=== PATIENT | male | born 1990 | race Caucasian/White ===

== ENCOUNTER 2023-07-14 09:37 | Emergency (ER) | payer SELFPAY ==
--- NOTE | ~2023-07-14 | XR_ITS ---
EXAMINATION: XR shoulder RT min 2V INDICATION: Right shoulder pain TECHNIQUE: Four views of the right shoulder are submitted. COMPARISON: None FINDINGS: Normal alignment. No fracture. The glenohumeral joint is unremarkable. The acromion is loca joanna 6 mm caudal to the distal clavicle. Soft tissues are unremarkable. IMPRESSION: 1. Findings suggestive of mild acromioclavicular joint separation. Reviewed, dictated and finalized at location L. [facility] [employer]
--- NOTE | 2023-07-14 09:38 | ED.UPPEXIN ---
HPI - Extremity Injury (Upper) General Chief Complaint: Extremity Injury, Upper Stated Complaint: Right Shoulder Pain Time Seen by Provider: 07/14/23 09:37 Source: patient Mode of arrival: ambulatory Limitations: no limitations History of Present Illness HPI narrative: Peng is a 33-year-old male patient presenting to the clinic today with complaints of right shoulder pain x 2 days. He reports he fell off his scooter injuring his right shoulder Related Data Home Medications Medication Instructions Recorded Confirmed No Home Medications 07/14/23 07/14/23 Allergies Allergy/AdvReac Type Severity Reaction Status Date / Time No Known Allergies Allergy Verified 07/14/23 09:49 Review of Systems Review of Systems: Pertinent positives per HPI. Patient denies any fever, chills, rash, headache, visual changes, dizziness, cough, shortness of breath, chest pain, palpitations, nausea, vomiting, diarrhea, constipation, abdominal pain, or any urinary issues. PMFSH Comments At the time of my signature, I reviewed and agree with the nursing past medical, surgical, social, and family history. There is no relevant family history pertinent to the patient complaint. Exam Narrative: General: Well-developed, well nourished, in no apparent distress Head: Normocephalic, atraumatic. Cardio: Regular rate and rhythm, s1 and s2 normal, no murmur appreciated. Resp: Clear to auscultation bilaterally, no rhonchi, rales, wheezing or rubs. Musculoskeletal: No deformity, abrasions to the right posterior shoulder, right mid back, right and left elbow, tenderness with mild swelling to the posterior shoulder, pain with raising his arm above his shoulder, limited ROM due to pain, muscle strength strong and equal, peripheral pulse strong, no edema, no cyanosis, normal gait and station Course Course Emergency Course: Portions of this record may have been created with voice recognition software. Level of Care: Express Care Visit Vital Signs Vital signs: Vital signs reviewed MDM - Extremity Injury (Upper) MDM Narrative Medical decision making narrative: At the time of visit patient is resting comfortably on the exam table. Patient appears to be nontoxic. Plan: supportive measures were discussed with the patient and they voiced understanding discharge instructions and agrees to treatment plan. Return precautions reviewed Discharge Plan Discharge Clinical Impression: Contusion of right shoulder, Abrasion, AC separation Patient Disposition: Home, Self-Care Condition: Stable Instructions: Antibiotic Form, Contusion in Adults (ED), Abrasion (ED), Shoulder Pain (ED) Additional Instructions: Right shoulder x-rays negative for any sign of fracture of the shoulder, clavicle, or humerus. Finding suggestive of mild AC joint separation Wear arm sling until cleared by orthopedic provider/PCP Keep abrasions clean and dry-wash daily with soap and water. May apply triple antibiotic ointment to the wounds twice daily times 48 hours then may leave open to air Take Tylenol/Motrin as needed for pain May use heat or ice to the affected area May use blue emu, lidocaine patches, or asper cream to affected area- do not apply heat or ice directly over cream-do not apply to open areas of the skin- can cause burn. Follow up with your PCP in 3-5 days if symptom persist. Follow-up with orthopedic doctor as discussed Prescriptions: No Action No Home Medications Follow-up/Referrals: Piotr Glass MD [Physician] - 1 Day (Mild AC joint separation) UNKNOWN,DOCTOR [Non-Staff] - Stand Alone Forms: Work/School Release IP Time of Disposition: 10:02 Quality NIHSS Nursing Documentation ED NIHSS nursing documentation: reviewed/agree
[2023-07-14 09:47] VITALS: BP 129/80; PULSE 85; RESP 16; TEMP 36.5; O2SAT 98
== END 2023-07-14 10:35 | disposition home or self-care (01) ==
PROVIDERS: Emergency Provider Nurse Practitioner Family
DX: S40.011A Contusion of right shoulder, initial encounter (principal); S40.211A Abrasion of right shoulder, initial encounter; S20.411A Abrasion of right back wall of thorax, initial encounter; S50.312A Abrasion of left elbow, initial encounter; S50.311A Abrasion of right elbow, initial encounter; S43.101A Unspecified dislocation of right acromioclavicular joint, initial encounter; W05.1XXA Fall from non-moving nonmotorized scooter, initial encounter
CPT/HCPCS: 73030; 99213; A4565; G0463